=== PATIENT | male | born 1970 | race Caucasian/White ===

== ENCOUNTER 2019-11-05 10:04 | Emergency (ER) | payer BC, OTHER ==
[2019-11-05 11:22] VITALS: BP 122/80
--- NOTE | 2019-11-05 12:04 | UC ---
Respiratory Complaint HPI - HPI Summary HPI Summary: 49 yo male had respiratory illness 3 weeks (cough/fever/chills/GEORGE/Myalgias and runny nose) Illness lasted about a week and he assumed it was the flu Since then has had low energy/profound fatigue and has been sleepy more that unusal no CP or SOB Wakes up and tries to work but nods off and naps appetite normal no n/v/d currently no cough - History of Current Complaint Chief Complaint: UCGeneralIllness Stated Complaint: LEFT EAR FATIGUE Time Seen by Provider: 11/05/19 11:23 Hx Obtained From: Patient Onset/Duration: Gradual Onset, Resolved, Other - onset 3 weeks ago Timing: Constant Severity Initially: Severe Severity Currently: None Pain Intensity: 0 Pain Scale Used: 0-10 Numeric Character: Cough: Nonproductive Aggravating Factors: Nothing Alleviating Factors: Spontaneous Resolution Associated Signs And Symptoms: Negative: Dyspnea, Fever - resolved about 2 weeks ago, Chills - resolved, Wheezing, Hemoptysis, Dizziness, Calf Pain, Calf Swelling, Edema, Nasal Congestion - resolved, Hoarseness - Allergies/Home Medications Allergies/Adverse Reactions: Allergies Allergy/AdvReac Type Severity Reaction Status Date / Time No Known Allergies Allergy Verified 11/05/19 11:17 Home Medications: Home Medications Dm/Acetaminophen/Doxylamine [Vicks Nyquil Cold & Flu N] 30 ml PO Q6H PRN [History Confirmed 11/05/19] Ibuprofen TAB* [Advil TAB*] 400 mg PO Q6H PRN 11/05/19 [History Confirmed ] PMH/Surg Hx/FS Hx/Imm Hx Previously Healthy: Yes - Lyme Disease - Surgical History Surgical History: Yes Surgery Procedure, Year, and Place: Spontaneous Left Pneumothorax Hospitalization, 1990, - Social History Alcohol Use: Rare Substance Use Type: None Smoking Status (MU): Current Some Day Smoker Type: Cigars Amount Used/How Often: 1 cigar every other day Length of Time of Smoking/Using Tobacco: Since Age 48 Review of Systems All Other Systems Reviewed And Are Negative: Yes Constitutional: Positive: Fatigue Skin: Positive: Negative Eyes: Positive: Negative ENT: Positive: Ear Ache - L mild Respiratory: Positive: Negative Cardiovascular: Positive: Negative Gastrointestinal: Positive: Negative Genitourinary: Positive: Negative Motor: Positive: Negative Neurovascular: Positive: Negative Musculoskeletal: Positive: Negative Neurological/Mental Status: Positive: Negative Psychological: Positive: Negative Physical Exam Triage Information Reviewed: Yes Appearance: Well-Appearing, No Pain Distress, Well-Nourished Vital Signs: Initial Vital Signs Temp 98.3 F 11/05/19 11:13 Pulse 78 11/05/19 11:13 Resp 18 11/05/19 11:13 BP 122/80 11/05/19 11:13 Pulse Ox 99 11/05/19 11:13 Vital Signs Reviewed: Yes Eyes: Positive: Conjunctiva Clear ENT: Positive: Hearing grossly normal, Pharynx normal, TMs normal, Uvula midline. Negative: Nasal congestion, Nasal drainage, Tonsillar swelling, Tonsillar exudate, Trismus, Muffled voice, Hoarse voice, Dental tenderness, Sinus tenderness Dental Exam: Normal Neck: Positive: Supple, Nontender, No Lymphadenopathy Respiratory: Positive: Lungs clear, Normal breath sounds, No respiratory distress, No accessory muscle use Cardiovascular: Positive: RRR, No Murmur Abdomen Description: Positive: Nontender, No Organomegaly, Soft. Negative: CVA Tenderness (R), CVA Tenderness (L) Bowel Sounds: Positive: Present Musculoskeletal: Positive: No Edema Psychological Exam: Normal Skin Exam: Normal Diagnostics - Radiology No standard instances Radiology Interpretation Completed By: Radiologist Summary of Radiographic Findings: CXR: LEFT PLEURAL THICKENING, STABLE Respiratory Course/Dx - Differential Dx/Diagnosis Provider Diagnosis: Fatigue Discharge ED - Sign-Out/Discharge Documenting (check all that apply): Patient Departure All imaging exams completed and their final reports reviewed: Yes - Discharge Plan Condition: Stable Disposition: HOME Patient Education Materials: Fatigue (ED) Referrals: Jessica Puckett [Primary Care Provider] - 3 Days (recheck next week) Additional Instructions: blood work pending - Billing Disposition and Condition Condition: STABLE Disposition: Home
[2019-11-05 18:51] LABS: ABS Eosinophils 0.1 10^3/ul (0-0.6); ABS Lymphocytes 1.5 10^3/ul (1.0-4.8); ABS Monocytes 0.4 10^3/ul (0-0.8); ABS Neutrophils 4.1 10^3/ul (1.5-7.7); Eosinophil % 0.9 %; Hematocrit 42 % (42-52); Hemoglobin 14.8 g/dL (14.0-18.0); Lymphocyte % 24.1 %; Mean Corpuscular HGB Conc 35 g/dL (31-36); Mean Corpuscular Hemoglobin 31 pg (27-31); Mean Corpuscular Volume 89 fL (80-94); Mean Platelet Volume 8.3 fL (7.4-10.4); Platelet Count 299 10^3/uL (150-450); Red Blood Count 4.78 10^6 /uL (4.18-5.48); Red Cell Distribution Width 13 % (10-15)
[2019-11-05 19:17] LABS: TSH (Thyroid Stimulating Horm) 0.75 mcIU/mL (0.34-5.60)
[2019-11-05 22:39] LABS: Albumin 4.3 g/dL (3.2-5.2); Calcium 9.3 mg/dL (8.6-10.3); Potassium 4.6 mmol/L (3.5-5.0); Total Bilirubin 0.5 mg/dL (0.2-1.0)
[2019-11-05 22:45] LABS: Albumin/Globulin Ratio 1.8 (1-3); BUN/Creatinine Ratio 13.9 (8-20); EGFR African American 127.2 (>60); EGFR Non-African American 105.1 (>60); Globulin 2.4 g/dL (2-4); Total Protein 6.7 g/dL (6.4-8.9)
== END 2019-11-05 12:31 | disposition home or self-care (01) ==
LOC: UCCORT 10:04
DX: R53.83 Other fatigue (principal); R05 Cough; M79.10 Myalgia, unspecified site; R09.89 Other specified symptoms and signs involving the circulatory and respiratory systems; F17.290 Nicotine dependence, other tobacco product, uncomplicated
CPT/HCPCS: 36415; 71046; 80053; 84443; 85025; 86618; 99211; G0463